=== PATIENT | female | born 1980 | race Caucasian/White ===

== ENCOUNTER 2016-06-28 12:04 | Inpatient (IN) ==
[2016-06-28] MEDS ORDERED: NS 1,000 ML IV ONE ×2 (13:15→18:47)
[2016-06-28] MEDS ORDERED: ZOFRAN IV ONE ×2 (13:15→16:48)
[2016-06-28 13:35] LABS: BASO% 0.1 % (0.0-0.8); EOS# 0.01 X1000 (0.0-0.7); EOS% 0.1 % (0.0-10.0); HEMATOCRIT 30.7 % (37.0-47.0); HEMOGLOBIN 9.4 g/dL (12.0-16.0); IMM GRAN# 0.03 X1000 (0.0-0.04); IMM GRAN% 0.2 % (0.0-0.5); LYMPH# 1.08 X1000 (1.2-3.4); LYMPH% 7.3 % (20.5-51.1); MANUAL DIFF NEEDED? NO; MCH 23.3 PG (27-31); MCHC 30.6 g/dL (33-37); MONO# 0.92 X1000 (0.11-0.59); MONO% 6.2 % (1.7-9.3); MPV 8.9 FL (7.4-10.4); NEUT% 86.1 % (42.2-75.2); PLT 389 X1000 (130-400); RBC 4.04 XMIL (4.2-5.4)
[2016-06-28] MEDS ORDERED: G.I. COCKTAIL PO ONE ×2 (13:39→18:01)
[2016-06-28] MEDS ORDERED: PROTONIX IV ONE (13:40)
[2016-06-28] MEDS ORDERED: SODIUM CHLORIDE 0.9% INJ ONE ×2 (13:40→18:50)
--- NOTE | 2016-06-28 13:45 | PROVIDER DOCUMENTATION ---
HPI-General Adult - General Chief Complaint: N/V/D Stated Complaint: CONGESTION/CHEST PAIN Time Seen by Provider: 06/28/16 12:42 Source: patient Allergies/Adverse Reactions: Patient Allergies Allergy/AdvReac Type Severity Reaction Status Date / Time levofloxacin [From Levaquin] AdvReac Severe Unknown Verified 06/08/16 17:29 Home Medications: Home Medication List Medication Instructions Recorded Confirmed Last Taken Type Pantoprazole [Protonix] 40 mg PO DAILY 04/14/12 06/15/16 06/07/16 18:00 History Alprazolam [Xanax] 1 mg PO PRN PRN 03/27/13 06/15/16 11/11/14 History Aspirin 81 mg PO DAILY 03/27/13 06/15/16 06/07/16 18:00 History Vilazodone [Viibryd] 40 mg PO DAILY 03/27/13 06/15/16 06/07/16 18:00 History Buprenorphine HCl/Naloxone HCl 1 each TOP TID 11/12/14 06/15/16 06/07/16 12:00 History [Suboxone 8 mg/2 mg Sl Film] Amlodipine Besylate [Amlodipine 1 tab PO DAILY 06/08/16 06/15/16 06/07/16 18:00 History Besylate] Dicyclomine [Bentyl] 10 mg PO AC + HS #40 capsule 06/08/16 06/15/16 Unknown Rx Dicyclomine [Bentyl] 20 mg PO BID #20 capsule 06/15/16 Unknown Rx Nitrofurantoin Monohyd/M-Cryst 100 mg PO BID #20 capsule 06/15/16 06/15/16 Unknown Rx [Macrobid 100 mg Capsule] Polyethylene Glycol 3350 [Miralax] 17 gm PO DAILY PRN PRN #7 powd.pack 06/15/16 Unknown Rx - History of Present Illness -Gen Adult Nature of Presenting Problems: Pt. is 35 yof that presents with c/o abd pain that is diffuse but hurts most around her epigastric area. Pt. states she has been trying IVF and that while she had surgery for placement of eggs the physician told her she had diarrhea the whole time. She has an appointment with a GI physician but is hurting with N/V/D. Pt. reports she has been running a fever and unable to eat. Pt. reports she still has her gallbladder. Location of Pain/Injury: reports: abdomen. denies: head, face, mouth, neck, chest, upper extremity, hand(s), back, pelvis, genitalia, lower extremity, feet , upper body, lower body, generalized Pain Radiation: reports: epigastric Quality of Pain: reports: burning. denies: aching, cramping, dull, fullness, indigestion, pressure, sharp, stabbing, tearing, throbbing, tightness Severity: reports: severe. denies: mild, moderate Onset/Duration: reports: gradual, other (One month) Timing: reports: still present. denies: improving, gone now, resolved prior to arrival, intermittent, constant, changing over time, getting worse Context/Activities at Onset: reports: none. denies: recent emotional stress, recent physical stress, recent trauma history, possible bad food, cold exposure , out of country travel Modifying Factors: improves with: nothing Associated Symptoms: reports: diaphoresis, diarrhea, fever/chills, nausea, vomiting. denies: anxiety, arm pain, back/neck pain, chest pain, constipation, cough, dizziness, EENT symptoms, fatigue, genitourinary problems, headaches, heartburn, joint pain, loss of appetite, malaise, muscle aches, sinus congestion /drainage, rash, seizure, shortness of breath, sensory/motor loss, pain with inspiration, swelling/mass in abdomen, syncope, weakness, trouble walking Similar Symptoms Previously?: Yes Recently seen or treated by another doctor?: Yes Review of Systems - Adult - REVIEW OF SYSTEMS - ADULT Constitutional: reports: see HPI, chills, fever. denies: fatique Eyes: reports: see HPI. denies: discharge, blurred vision, double vision Ears, Nose, Mouth & Throat: reports: see HPI. denies: ear pain, sinus problem, mouth/dental pain, throat swelling Cardiovascular: reports: see HPI. denies: chest pain, irregular heart rate, palpitations, syncope Respiratory: reports: see HPI. denies: cough, dyspnea on exertion, pleurisy, wheezing Gastrointestinal: reports: see HPI, abdominal pain, diarrhea, nausea, vomiting Genitourinary: reports: see HPI. denies: dysuria, hematuria, incontinence, urgency Musculoskeletal: reports: see HPI. denies: back pain, joint pain, muscle aches , neck pain Integumentary: reports: see HPI. denies: hives, itching, rash, skin thickening Neurological: reports: see HPI. denies: dizziness/vertigo, headache/migraines, numbness, seizure, tremors Psychiatric: reports: see HPI. denies: anxiety, depression, emotional problems , insomnia, panic attacks, suicidal thoughts Past History - Adult - PAST MEDICAL HISTORY-ADULT Review of Records: reports: Old Records Reviewed, Nursing Assessment Review, Medications Reviewed, Social history reviewed & non-contributory. Major Childhood Illnesses: reports: denies history Cardiovascular: reports: cardiac disease, HTN Respiratory: reports: denies history Gastrointestinal: reports: GERD Obstetrical/Gynecological: reports: ectopic (X2) Genitourinary: reports: denies history Musculoskeletal: reports: denies history Neurological: reports: denies history Psychiatric: reports: denies history Endocrine/Immune: reports: denies history Other Conditions: reports: denies history - PRIOR SURGERIES/PROCEDURES Surgical/Procedure History: reports: other (ectopic ) - PRIOR HOSPITALIZATIONS Prior Hospitalizations: reports: for other non-related - IMMUNIZATION STATUS Childhood Immunizations: See Nurse Assessment Flu Vaccine: See Nurse Assessment - FAMILY HISTORY Family History: reviewed, not pertinent - SOCIAL HISTORY Smoking: cigarettes, greater than 1 pack/day Provider spent 3-5 mins advising pt. on dangers of tobacco.: Discussed the need to stop smoking. Physical Exam-General - PHYSICAL EXAM-ADULT Initial Vital Signs Reviewed: Yes - CONSTITUTIONAL General Appearance: alert, moderate distress. negative: anxious, lethargic, slow to respond, obtunded, combative - EYES Eyes: PERRL/EOMI, pink conjunctivae. negative: conjuctival exudate, scleral icterus, subconjunctival hemorrhage - HEAD, EARS, NOSE, MOUTH & THROAT HENMT: normocephalic/atraumatic, moist mucous membranes. negative: angioedema, frontal tenderness, maxillary tenderness - NECK Neck: non-tender, full range of motion, supple, normal inspection. negative: lymphadenopathy, trachial deviation, thyromegaly - RESPIRATORY Respiratory: lungs clear, normal breath sounds. negative: crackles, rales, rhonchi, stridor, wheezing - CARDIOVASCULAR Cardiovascular: normal peripheral pulses, regular rate, rhythm, no edema, no JVD , no murmur. negative: extra beats, friction rub, irregularly irregular - GASTROINTESTINAL (ABDOMEN) Abdominal Exam: soft, abnormal bowel sounds (Hypoactive), tenderness (Diffusely) . negative: distended, guarding, rigid, rebound, hernia, mass - LYMPHATIC Lymphatic: no adenopathy. negative: axilla node tender, cervical node tenderness - MUSCULOSKELETAL Back Exam: normal inspection, no CVA tenderness, no vertebral tenderness. negative: ecchymosis, swelling, vertebral tenderness Extremity: normal range of motion, non-tender, normal gait, normal inspection. negative: deformity, erythema, inflammation, swelling, tenderness Peripheral Pulses: radial (R): 2+, radial (L): 2+ - SKIN Integumentary: diaphoresis, pallor. negative: cyanosis, ecchymosis, erythema, jaundice, mottled, petechiae, purpura, rash, swelling, tenderness - NEUROLOGIC Neurologic: grossly normal, no motor/sensory deficits. negative: aphasia, facial droop, focal weakness, motor weakness, sensory deficit - PSYCHIATRIC Psych/Mental Status: normal mood/affect, normal thought content, normal thought process, oriented x 3. negative: anxious, paranoid, tearful Progress - PLAN OF CARE/RESULTS Progress/Plan/Lab Results: Vital Signs - 8 hr 06/28/16 12:11 06/28/16 12:45 Temperature 97.5 F L Pulse Rate 97 H Pulse Rate [Sitting] 89 Pulse Rate [Standing] 91 H Pulse Rate [Supine] 79 Respiratory Rate 20 Blood Pressure 141/100 Blood Pressure [Sitting] 148/104 Blood Pressure [Standing] 118/96 Blood Pressure [Supine] 141/96 O2 Sat by Pulse Oximetry 96 Laboratory Results - last 24 hr 06/28/16 13:25 WBC 14.75 H RBC 4.04 L Hgb 9.4 L Hct 30.7 L MCV 76.0 L MCH 23.3 L MCHC 30.6 L RDW Std Deviation 21.7 H Plt Count 389 MPV 8.9 Immature Gran % (Auto) 0.2 Neut % (Auto) 86.1 H Lymph % (Auto) 7.3 L [place] % (Auto) 6.2 Eos % (Auto) 0.1 Baso % (Auto) 0.1 Immature Gran # (Auto) 0.03 Neut # (Auto) 12.69 H Lymph # (Auto) 1.08 L [place] # (Auto) 0.92 H Eos # (Auto) 0.01 Baso # (Auto) 0.02 Orders Category Date Time Status ED: Urine Bedside ORDERED Care 06/28/16 13:15 Active Saline Loc NOW Care 06/28/16 13:15 Active AMYLASE [CHEM] Stat Lab 06/28/16 13:25 Received CBC WITH ELECTRONIC DIFF [HEME] Stat Lab 06/28/16 13:25 Completed CK PROFILE [SP CHEM] Stat Lab 06/28/16 13:25 Received COMPREHENSIVE METABOLIC PANEL [CHEM] Stat Lab 06/28/16 13:25 Received LIPASE [CHEM] Stat Lab 06/28/16 13:[address] W/POSS RFLX CULT [URINALYSIS] Stat Lab 06/28/16 13:15 Uncollected 0.9% Sodium Chloride Inj [Ns] 1,000 ml Med 06/28/16 13:15 Active IV 999 mls/hr Lido/Meraz Alk/Al&mg Hydrox [G.i. Cocktail] Med 06/28/16 13:39 Once 30 ml PO NOW ONE Ondansetron [Zofran] Med 06/28/16 13:15 Discontinued 4 mg IV NOW ONE Pantoprazole [Protonix] Med 06/28/16 13:40 Once 40 mg IV NOW ONE Sodium Chloride 0.9% Med 06/28/16 13:40 Once 10 ml INJ NOW ONE Result Diagrams: 06/28/16 13:25 06/28/16 13:25 - CT/MRI 1 CT Study: Abdomen (Development of prominent overies with multiple cysts up to 3.5 cm since 06-14-16 as well as minimal free fluid. Otherwise no change ([place]) ), Pelvis CT Results: See note - CONSULTS/PCP/HOSPITALIST Notification #1 *Consult/PCP/Hospitalist*: Dr. Aldridge Time Discussed: 15:22 Reason/Comments: Consult Consult Disposition: other (Dr. Aldridge states that the invitro procedure starts with an injection of hcg to help the ovaries release the eggs. This is the cause of the + tests.) #2 Consult: Dr. Howard Saini Discussed: 18:45 Reason/Comments: Admission Consult Disposition: Admit Departure - Departure Time of Disposition Decision: 18:45 DIAGNOSIS: Intractable abdominal pain UTI (urinary tract infection) Qualifiers: Urinary tract infection type: acute cystitis Hematuria presence: without hematuria Qualified Code(s): N30.00 - Acute cystitis without hematuria Diarrhea Qualifiers: Diarrhea type: unspecified type Qualified Code(s): R19.7 - Diarrhea, unspecified Nausea and vomiting Qualifiers: Vomiting type: unspecified Vomiting Intractability: unspecified Qualified Code( s): R11.2 - Nausea with vomiting, unspecified Disposition: HOME 01 Certified Medical Emergency: Emergent Condition: Stable Referrals and Follow-Ups: Jerome Lawrence MD [Primary Care Provider] - - Critical Care Note This patient required my direct personal management.: No Attestation - Physician/ ENMANUEL Attestation Patient care was provided by Advanced Practice Provider:: Yes Advanced Practice Provider:: Isac Streeter Advanced Practice Provider documentation review:: The Mid-level provider documentation, treatment plan and medical decision making was reviewed by the physician who agrees with all treatment and medical decision making by the MLP.
[2016-06-28 13:47] LABS: AGAP 14; ALBUMIN 3.6 g/dL (3.5-5.0); ALKALINE PHOSPHATASE 49 U/L (32-104); AMYLASE 39 U/L (20-200); BUN 7 mg/dL (8-22); CALCIUM 8.8 mg/dL (8.8-10.2); CHLORIDE 98 mmol/L (98-107); CK PROFILE 35 U/L (24-173); COSMO 272; GOT 9 U/L (10-30); GPT < 5 U/L (10-36); LIPASE 40 U/L (13-60); POTASSIUM 3.3 mmol/L (3.5-5.1); SODIUM 136 mmol/L (136-145); TCO2 24 mmol/L (25-35); TOTAL PROTEIN 7.4 g/dL (6.3-8.3)
[2016-06-28 14:24] LABS: BILIRUBIN URINE NEGATIVE (NEGATIVE); BLOOD URINE NEGATIVE (NEGATIVE); CLARITY CLEAR (CLEAR); COLOR YELLOW; GLUCOSE URINE NEGATIVE (NEGATIVE); LEUKOCYTES URINE 1+ (NEGATIVE); NITRITE URINE NEGATIVE (NEGATIVE); PROTEIN URINE NEGATIVE (NEGATIVE); UROBILINOGEN URINE NORMAL
[2016-06-28 14:41] LABS: URINE CAST NONE SEEN /LPF; URINE CRYSTAL NONE SEEN /HPF; URINE CULTURE PL NEEDED? YES; URINE EPITHELIAL CELLS <10 /HPF (<10); URINE SOURCE CLEAN CATCH
[2016-06-28] MEDS ORDERED: ROCEPHIN 1 GM/NS 1 GM/50 ML IVPB IV ONE (15:55)
[2016-06-28] MEDS ORDERED: DILAUDID IV ONE (16:48)
[2016-06-28] MEDS ORDERED: ZOFRAN IV PRN (18:47)
[2016-06-28] MEDS ORDERED: PHENERGAN IV ONE (18:50)
--- NOTE | 2016-06-28 18:51 | Diag Imaging Result Document ---
PROCEDURE NAME: CT ABD/PELVIS W/ IV CONT ONLY - 06/28/2016 STUDY: CT abdomen and pelvis with intravenous contrast. COMPARISON: Compared to a study performed 2 weeks earlier. There is trace fluid about the upper liver and about the spleen on the current exam. Mild fatty infiltration of the liver. The spleen is not enlarged. Normal pancreas, gallbladder, adrenal glands, and kidneys. No hydronephrosis. Normal aorta. Possible filling defect in the anterior left lateral ventricle of the heart has an appearance similar to the prior exam. There is fluid scattered throughout several small bowel loops. The bowel loops are not distended. No inflammation about the cecum. Interval development of many prominent ovarian cysts. The ovaries were normal size on the prior exam but are now enlarged, containing multiple cysts measuring up to 3.5 cm. Normal uterus. There is free fluid in the pelvis. The urinary bladder is moderately distended and appears normal. IMPRESSION: 1. The ovaries are now enlarged, containing multiple prominent cysts, and there is free fluid in the abdomen and pelvis on the current study. 2. No other interval change since the prior exam. A preliminary report was given at 6:01 p.m. [facility]
[2016-06-28] MEDS: PROTONIX 80 MG in NS 80 ML IV SCH (22:59)
[2016-06-29] MEDS: PROTONIX 80 MG in NS 80 ML IV SCH ×2 (09:59→18:09)
[2016-06-29 10:20] LABS: HEMATOCRIT 28.3 % (37.0-47.0); HEMOGLOBIN 8.7 g/dL (12.0-16.0); MCH 23.3 PG (27-31); MCHC 30.7 g/dL (33-37); MCV 75.9 FL (81-99); MPV 9.2 FL (7.4-10.4); RBC 3.73 XMIL (4.2-5.4)
[2016-06-29 10:42] LABS: AGAP 10; ALKALINE PHOSPHATASE 43 U/L (32-104); BUN 6 mg/dL (8-22); CALCIUM 8.2 mg/dL (8.8-10.2); CHLORIDE 99 mmol/L (98-107); COSMO 263; GOT 6 U/L (10-30); GPT < 5 U/L (10-36); POTASSIUM 3.2 mmol/L (3.5-5.1); SODIUM 133 mmol/L (136-145); TCO2 24 mmol/L (25-35); TOTAL PROTEIN 6.4 g/dL (6.3-8.3)
[2016-06-29] MEDS ORDERED: XANAX PO PRN (10:47)
[2016-06-29] MEDS ORDERED: ZOFRAN IV PRN (10:48)
[2016-06-29] MEDS ORDERED: TYLENOL PO PRN (10:48)
[2016-06-29] MEDS ORDERED: ROCEPHIN 1 GM/NS 1 GM/50 ML IVPB IV SCH ×2 (11:00→16:00)
[2016-06-29] MEDS: COREG PO SCH (11:09)
[2016-06-29] MEDS: SUBOXONE 8 MG/2 MG SL SCH ×2 (11:10→20:53)
[2016-06-29] MEDS: G.I. COCKTAIL PO PRN ×3 (11:15→20:54)
--- NOTE | 2016-06-29 15:59 | HISTORY AND PHYSICAL ---
CHIEF COMPLAINT: Nausea and vomiting. HISTORY OF PRESENT ILLNESS: The patient is a 35-year-old female who recently has undergone in vitro fertilization and has had ovaries harvested. She was given beta hCG to prepare for this. During the test she started having some diarrhea and since then she has had nausea, vomiting, and diarrhea. Notes that she has been having a low-grade fever. She has been unable to eat. MEDICATIONS: Protonix, Xanax p.r.n., aspirin, Viibryd 40, Suboxone 8/2 b.i.d., Norvasc twice a day, Bentyl, nitrofurantoin. REVIEW OF SYSTEMS: Patient has had nausea, vomiting, abdominal pain for the past couple of days. Notes that her symptoms dramatically worsened today. Started having increased abdominal pain, increased nausea and vomiting, unable to keep down anything orally. Therefore, she came to the emergency department. Denies any blood in her stool or blood in her emesis. Denies any sick contacts. Denies any headaches, blurred vision, change in vision. PAST MEDICAL HISTORY: 1. Chronic anxiety. 2. Chronic opiate abuse. 3. History of ectopic x2. 4. Chronic reflux. 5. She has had a heart attack. 6. Coronary artery disease. 7. Hypertension. FAMILY HISTORY: Noncontributory. SOCIAL HISTORY: She lives at home. She is . She has been trying to stop smoking. She does not drink. PHYSICAL EXAMINATION: VITAL SIGNS: Reviewed. Temperature 97.5 degrees, pulse 97, respiratory rate 18, BP 141/40. GENERAL: Patient is a well-developed, well-nourished female who is currently in no respiratory distress. She does appear nauseated. HEENT: Normocephalic, atraumatic. NECK: Supple. CV: Regular rate and rhythm. CHEST: Relatively clear. ABDOMEN: Soft. EXTREMITIES: Moves all extremities. NEUROLOGIC: No focal changes. SKIN: Warm and dry. No rashes. DIAGNOSTIC DATA: WBCs 14, hemoglobin and hematocrit are 9 and 30 with an MCV of 76. Sodium 136, potassium 3.3. ASSESSMENT: 1. Nausea and vomiting. 2. Intractable abdominal pain. 3. Mild hypokalemia secondary to the diarrhea and vomiting. 4. Leukocytosis, uncertain etiology; likely stress reaction. 5. Hypertension. 6. Chronic opiate abuse. PLAN: We will admit the patient to the hospital. IV fluids. IV Zofran. Will continue to follow. CT in the ER was essentially unremarkable. cc: Jerome Lawrence MD
[2016-06-30] MEDS: G.I. COCKTAIL PO PRN ×4 (02:03→18:37)
[2016-06-30] MEDS: PROTONIX 80 MG in NS 80 ML IV SCH (04:52)
[2016-06-30] MEDS: COREG PO SCH ×2 (08:31→21:02)
[2016-06-30] MEDS: SUBOXONE 8 MG/2 MG SL SCH ×2 (08:31→21:02)
[2016-06-30] MEDS ORDERED: ROCEPHIN 1 GM/NS 1 GM/50 ML IVPB IV ONE (11:00)
[2016-06-30] MEDS ORDERED: AUGMENTIN PO SCH (21:00)
[2016-07-01] MEDS: G.I. COCKTAIL PO PRN ×4 (01:07→20:24)
[2016-07-01 06:44] LABS: HEMATOCRIT 27.4 % (37.0-47.0); HEMOGLOBIN 8.4 g/dL (12.0-16.0); MCH 23.2 PG (27-31); MCHC 30.7 g/dL (33-37); MCV 75.7 FL (81-99); MPV 9.8 FL (7.4-10.4); RBC 3.62 XMIL (4.2-5.4)
[2016-07-01 06:57] LABS: CHLORIDE 98 mmol/L (98-107); POTASSIUM 3.3 mmol/L (3.5-5.1); SODIUM 133 mmol/L (136-145)
[2016-07-01] MEDS ORDERED: PRILOSEC PO SCH (07:00)
[2016-07-01] MEDS: COREG PO SCH ×2 (09:28→20:05)
[2016-07-01] MEDS: SUBOXONE 8 MG/2 MG SL SCH ×2 (09:28→20:05)
[2016-07-01 09:30] LABS: TCO2 21 mmol/L (25-35)
[2016-07-01 09:31] LABS: BUN 8 mg/dL (8-22); TOTAL PROTEIN 5.7 g/dL (6.3-8.3)
[2016-07-01 09:32] LABS: AGAP 16; COSMO 266; GOT 11 U/L (10-30); GPT 3 U/L (10-36); MAGNESIUM 2.1 mg/dL (1.5-2.7)
[2016-07-01 10:46] LABS: ALBUMIN 3.7 g/dL (3.5-5.0); ALKALINE PHOSPHATASE 54 U/L (32-104)
--- NOTE | 2016-07-01 11:44 | Diag Imaging Result Document ---
PROCEDURE NAME: US ABDOMEN-COMPLETE - 07/01/2016 ABDOMINAL ULTRASOUND PERFORMED PORTABLY: FINDINGS: The abdominal aorta and IVC are obscured by bowel gas. The pancreas is suboptimally visualized, as well. The liver and spleen appear normal in size and echotexture. The gallbladder is free of stones and sludge and has a normal caliber wall. The portal vein is patent. The common bile duct measures 7 mm. This is slightly prominent and is of uncertain significance. The kidneys appear normal bilaterally. No hydronephrosis. IMPRESSION: Borderline prominent common bile duct measuring 7 mm. No cholelithiasis.
--- NOTE | 2016-07-01 15:47 | PROGRESS NOTE ---
DATE: 07/01/2016 SUBJECTIVE: The patient is feeling some better. She states that her nausea and vomiting are better. Abdominal pain has been relieved by GI cocktail. She has been tolerating sips with ice chips. She denies any diarrhea, constipation, any black or bloody vomitus or stool. OBJECTIVE: Vital Signs: Blood pressure is 110/62 with a heart rate of 85, respirations are 18, temperature is 99 degrees oral with room air saturations of 97% and 98%. Cardiovascular: Regular rate and rhythm. S1 and S2 appreciated. Pulmonary: Breath sounds are clear with no increased work of breathing noted. Gastrointestinal: Abdomen is soft, nondistended, nontender with bowel sounds in all 4 quadrants. Extremities: No clubbing or cyanosis. She does have some lower extremity edema, nonpitting bilateral. Neurologic: She is alert and oriented x3 with cranial nerves 2-12 grossly intact. LABORATORY: WBC is 10.9, with hemoglobin 8.4, hematocrit 27.4, and platelets of 303,000. Sodium is 133, potassium 3.3, BUN 8, creatinine 0.3, with a glucose of 80. ASSESSMENT: 1. Nausea and vomiting. 2. Intractable abdominal pain. 3. Mild hypokalemia secondary to diarrhea and vomiting. 4. Leukocytosis, uncertain etiology, likely stress reaction. 5. Hypertension. 6. Chronic opiate abuse. We will continue with the current regimen. She will remain nothing per oral with just sips and chips. Ultrasound of the abdomen will be ordered as the patient has had continued abdominal pain and vomiting with hemoglobin 8.4-9.4, hematocrit 27.4-30. She will be transferred to [facility] when a bed is available. Gastroenterology will be consulted. She will likely need an esophagogastroduodenoscopy. 7. The patient has a positive urine test as well as qualitative blood test with a semiquantitative of 16.2. The patient has recently received a beta HCG injection as she is undergoing in-vitro fertilization and has had eggs harvested. Physician overseeing in-vitro fertilization is Dr. Vogt with a contact #[phone]. His nurse, Nery, is also at this number. Dictated by SAMRA Marcelino for Jerome Lawrence MD cc: SAMRA Marcelino MD
[2016-07-01] MEDS: SODIUM CHLORIDE 0.9% INJ SCH (17:52)
[2016-07-01] MEDS: PROTONIX IV SCH (17:52)
[2016-07-01] MEDS ORDERED: PROTONIX IV SCH (18:51)
[2016-07-02] MEDS: PROTONIX IV SCH ×2 (02:57→17:10)
[2016-07-02] MEDS: G.I. COCKTAIL PO PRN ×5 (02:57→22:27)
[2016-07-02] MEDS: D5 NS 1,000 ML IV SCH ×2 (06:36→11:05)
[2016-07-02 08:44] LABS: MANUAL DIFF NEEDED? NO
[2016-07-02 08:47] LABS: BASO% 0.1 % (0.0-0.8); EOS# 0.05 X1000 (0.0-0.7); EOS% 0.6 % (0.0-10.0); HEMATOCRIT 26.4 % (37.0-47.0); HEMOGLOBIN 8.2 g/dL (12.0-16.0); IMM GRAN# 0.02 X1000 (0.0-0.04); IMM GRAN% 0.2 % (0.0-0.5); LYMPH# 1.23 X1000 (1.2-3.4); LYMPH% 14.5 % (20.5-51.1); MCH 23.8 PG (27-31); MCHC 31.1 g/dL (33-37); MCV 76.5 FL (81-99); MONO# 0.64 X1000 (0.11-0.59); MONO% 7.5 % (1.7-9.3); MPV 9.1 FL (7.4-10.4); NEUT% 77.1 % (42.2-75.2); PLT 272 X1000 (130-400); RBC 3.45 XMIL (4.2-5.4)
[2016-07-02 09:06] LABS: AGAP 15; BUN 6 mg/dL (8-22); CHLORIDE 94 mmol/L (98-107); COSMO 265; SODIUM 134 mmol/L (136-145); TCO2 25 mmol/L (25-35)
[2016-07-02] MEDS: SUBOXONE 8 MG/2 MG SL SCH ×2 (09:33→22:31)
[2016-07-02] MEDS ORDERED: DIPRIVAN 1% ONE (13:16)
[2016-07-02] MEDS ORDERED: EXTENSION SET 32 IN 4522 ONE (13:31)
[2016-07-02] MEDS ORDERED: ANESTHESIA PB SET 88 IN 5742 ONE (13:31)
[2016-07-02] MEDS ORDERED: LR 1,000 ML ONE (13:31)
[2016-07-02] MEDS: COREG PO SCH ×2 (13:38→22:28)
[2016-07-02] MEDS ORDERED: MORPHINE IV PRN (13:51)
[2016-07-02] MEDS ORDERED: GOLYTELY PO ONE (14:00)
[2016-07-02] MEDS: SODIUM CHLORIDE 0.9% INJ SCH (17:10)
[2016-07-02] MEDS: CARAFATE LIQUID PO SCH ×2 (17:10→22:31)
--- NOTE | 2016-07-02 20:00 | OPERATIVE NOTE ---
PROCEDURE DATE: 07/02/2016 REFERRING PHYSICIAN: Dr. Lawrence. GASTROENTEROLOGY INPATIENT PROCEDURE: PROCEDURE: Esophagogastroduodenoscopy with biopsy. PREOPERATIVE DIAGNOSES: 1. Epigastric pain going on for the last 1 month. 2. Reflux. 3. Anemia with a hemoglobin of 8.4 g. 4. Positive serum HCG level secondary to in vitro fertilization, associated beta HCG shot given by Dr. Vogt at [place]. 5. Negative imaging on CT and ultrasound. 6. History of chronic pain, on Suboxone, and has intermittent constipation which has worsened over the last 1 month. POSTOPERATIVE DIAGNOSES: 1. Normal esophagus in its entire length. 2. Z-line was at 35 cm. 3. Hiatal hernia 1 cm in size. 4. Bile in the stomach which was suctioned out. 5. Gastritis in the body and antrum, erosive type, moderately severe, status post biopsy. 6. Normal fundus, cardia, and incisura. 7. Normal duodenal bulb and second portion. 8. No evidence of pyloric stenosis. COMPLICATIONS: None. ANESTHESIA: Monitored anesthesia. ESTIMATED BLOOD LOSS: None. SPECIMEN: Random gastric biopsies sent to Surgical Pathology. DESCRIPTION OF PROCEDURE: After informed consent from the patient, explaining the risks, benefits, indications, and alternatives, the patient was prepared for EGD. The risks of the procedure, including infection, bleeding, pain, trauma to the surrounding structures, perforation, , among others, and she acknowledged understanding and agreed to proceed with the procedure. The patient was brought to the OR. She was turned in the left lateral position. A bite block was placed in patient's mouth. After adequate monitored anesthesia care the scope was gently introduced through the oral vestibule all the way to the second portion of the duodenum. Esophagus was normal the entire length. Z-line was at 35 cm. There was evidence of a sliding hiatal hernia of 1 cm. The scope was then withdrawn in the stomach. Evidence of bile which was suctioned out. There was evidence of erythema and erosion in the body and antrum, more so in the distal antrum and the pylorus. This was biopsied. Normal fundus, cardia, incisura on retroflexion. There was no evidence of any active ulceration noted in the entire stomach. The scope was advanced to the duodenum which showed normal mucosa in duodenal bulb and second portion of duodenum. The scope was withdrawn. The air was aspirated as the scope was withdrawn. The patient tolerated the procedure well and left the OR in stable condition. I discussed the finding with the patient when the patient awakened and all questions answered. RECOMMENDATIONS: 1. The patient will be on Protonix twice a day for 1 week and then switch to once daily for the next 3 months. 2. Patient on Carafate 1 g 6 hours for 4-6. 3. The patient will be on gastroesophageal reflux lifestyle changes. Avoid excessive tea, coffee, soda, tomatoes, onions, spicy foods. 4. Patient has chronic constipation and intermittent diarrhea. I believe she could have chronic constipation and overflow diarrhea. We will give her GoLYTELY and give her soapsuds enema. We will schedule her for colonoscopy tomorrow for work up of worsening anemia. The above plan of care discussed with the patient's mother, and all questions answered. cc: MD Jerome Gutierrez MD MTDD
[2016-07-03] MEDS: G.I. COCKTAIL PO PRN ×5 (02:19→22:18)
[2016-07-03] MEDS: SODIUM CHLORIDE 0.9% INJ SCH ×2 (02:19→14:22)
[2016-07-03] MEDS: PROTONIX IV SCH ×2 (02:19→14:22)
[2016-07-03] MEDS: CARAFATE LIQUID PO SCH ×4 (03:37→22:19)
[2016-07-03] MEDS: D5 NS 1,000 ML IV SCH ×4 (06:24→22:28)
[2016-07-03] MEDS ORDERED: MYLICON DROPS (DOSE) ONE (07:31)
[2016-07-03 08:03] LABS: MANUAL DIFF NEEDED? NO
[2016-07-03 08:05] LABS: BASO% 0.2 % (0.0-0.8); EOS# 0.05 X1000 (0.0-0.7); EOS% 0.8 % (0.0-10.0); HEMATOCRIT 26.6 % (37.0-47.0); HEMOGLOBIN 8.1 g/dL (12.0-16.0); IMM GRAN# 0.02 X1000 (0.0-0.04); IMM GRAN% 0.3 % (0.0-0.5); LYMPH# 0.99 X1000 (1.2-3.4); LYMPH% 15.8 % (20.5-51.1); MCH 23.4 PG (27-31); MCHC 30.5 g/dL (33-37); MCV 76.9 FL (81-99); MONO# 0.46 X1000 (0.11-0.59); MONO% 7.3 % (1.7-9.3); MPV 9.2 FL (7.4-10.4); NEUT% 75.6 % (42.2-75.2); PLT 270 X1000 (130-400); RBC 3.46 XMIL (4.2-5.4)
[2016-07-03 08:25] LABS: AGAP 12; BUN 3 mg/dL (8-22); CALCIUM 8.1 mg/dL (8.8-10.2); CHLORIDE 99 mmol/L (98-107); COSMO 273; POTASSIUM 2.9 mmol/L (3.5-5.1); SODIUM 139 mmol/L (136-145); TCO2 28 mmol/L (25-35)
[2016-07-03] MEDS ORDERED: DIPRIVAN 1% 500 MG/50 ML BOTTLE ONE (08:58)
[2016-07-03] MEDS ORDERED: XYLOCAINE-MPF 2% ONE (09:14)
[2016-07-03] MEDS: SUBOXONE 8 MG/2 MG SL SCH ×2 (09:29→22:19)
[2016-07-03] MEDS: COREG PO SCH ×2 (09:30→22:19)
--- NOTE | 2016-07-03 10:01 | OPERATIVE NOTE ---
PROCEDURE DATE: 07/03/2016 PROCEDURE PERFORMED: Ileal colonoscopy with snare cautery polypectomy of the descending colon, and cold biopsy polypectomy of the transverse colon polyp. PREOPERATIVE DIAGNOSES: 1. Anemia. 2. Change in bowel habits, constipation with diarrhea. 3. Abdominal pain. 4. Erosive gastritis on the esophagogastroduodenoscopy yesterday. POSTOPERATIVE DIAGNOSIS: 1. Normal terminal ileum. 2. Polyp, which is about 5 to 10 mm, sessile, in transverse colon. This was removed cold biopsy polypectomy. 3. Semi-pedunculated polyp noted in the descending colon, which was removed with snare cautery polypectomy. 4. Internal hemorrhoid. 5. No evidence of any colitis. 6. Stool noted in the cecum and right colon. ESTIMATED BLOOD LOSS: Minimal. COMPLICATIONS: None. ANESTHESIA: Monitored anesthesia care. SPECIMENS: Transverse colon polyp and descending colon polyp, sent to Surgical Pathology. DESCRIPTION OF PROCEDURE: After informed consent, and explaining the risks, benefits, indications, and alternatives, the patient was prepared for colonoscopy. The risks of the procedure, including infection, bleeding, pain, trauma to the surrounding structures, perforation were explained to the patient, among others, and she acknowledged understanding and agreed to proceed with the procedure. She was brought to the OR. She was turned in the left lateral position. Rectal exam was performed, which was normal with no masses felt, no blood on the examining finger. The colonoscope was introduced through the anal verge and advanced all the way to the terminal ileum. Terminal ileum was normal. There was no evidence of any Crohn's disease. There was stool in the cecum and ascending colon, which was lavaged. This was thick liquid in color. The underlying colonic mucosa appeared normal. There was evidence of a polyp, which was 5 to 10 mm, sessile in nature, in the transverse colon, which was removed using cold biopsy polypectomy. There was evidence of stool in scattered areas in the transverse and descending colon, which was lavaged. There was evidence of a semi-pedunculated polyp measuring about 1 cm in the descending colon, which was removed using snare cautery polypectomy. There was evidence of internal hemorrhoid on retroflexion. There was no evidence of any other visible overt colitis noted in the entire colon. The air was withdrawn. The patient tolerated the procedure well and is in stable condition. I discussed the findings with the patient's by phone, and all questions were answered. RECOMMENDATIONS: 1. The patient will be on full liquid diet for the next 2 days, and advance as tolerated. 2. The patient will be on MiraLAX 17 grams p.o. b.i.d. 3. Will start the patient on Iron-C 1 capsule p.o. b.i.d. for 3 months for anemia. 4. Will check the celiac panel. 5. The patient will need to be on Protonix once daily for 3 months for erosive gastritis. We will keep her on Carafate 1 gram ever 6 hours for bile in the stomach. Above plan of care was discussed with the patient's family, and all questions were answered. She will return to clinic in 4 weeks. cc: Kristian Chapin MD MTDD
[2016-07-03] MEDS: MIRALAX PO SCH ×2 (12:22→22:20)
--- NOTE | 2016-07-03 14:28 | PROGRESS NOTE ---
DATE: 07/03/2016 SUBJECTIVE: This patient had today a colonoscopy that did not show any signs of bleed. She had 2 polyps and internal hemorrhoids. The polyps were removed and sent to pathology. No evidence of colitis. Yesterday, this patient had an upper endoscopy done that showed gastritis in the body and antrum, erosive type, moderately severe. Also a biopsy was taken. Today, this patient is still complaining of epigastric pain that improved just with GI cocktail. We cannot use narcotics, because this patient is on Suboxone and we cannot use NSAIDs, because this patient moderately severe gastritis. OBJECTIVE: Vital Signs: Temperature 98.6, pulse 78, respiratory rate 20, blood pressure 109/68, Oxygen saturation 100% on room air. HEENT: Head normocephalic. No trauma. PERRLA. Neck: Supple. No JVD. No masses. Central trachea. Chest: Clear to auscultation. No wheezing. No rales. Cardiovascular: RRR. No murmurs. No gallops. No rubs. Abdomen: Soft, tender to palpation at the level of the epigastric area. Positive bowel sounds. Extremities: No edema. No clubbing. No cyanosis. Neurological: The patient is alert and oriented x3. No focal neurological deficits. LABORATORY: WBC 6.2, hemoglobin 8.1, hematocrit 26.6, platelets 270. Sodium 139, potassium 2.9, chloride 99, bicarbonate 28. BUN 3, creatinine 0.4, glucose 87, calcium 8.1. ASSESSMENT AND PLAN: 1. Intractable abdominal pain, status post upper endoscopy that showed moderately severe erosive gastritis. Gastroenterology department is following this patient. We will continue with pantoprazole and Carafate. Also, I will continue with GI cocktail. 2. Hypokalemia. The potassium has been replaced. 3. Leukocytosis, resolved. 4. Hypertension. Blood pressure is stable. 5. Chronic opiate abuse. Continue with the same management. This patient is on Suboxone. 6. Patient has a positive urine test as well as qualitative blood test with semi- quantitative of 16.2. This patient has recently received a beta HCG injection because she is undergoing in vitro fertilization. She is not at this moment. cc: Sukhi Bates MD
[2016-07-03] MEDS: ICAR-C PO SCH (22:19)
[2016-07-04] MEDS: D5 NS 1,000 ML IV SCH (00:17)
[2016-07-04] MEDS: CARAFATE LIQUID PO SCH ×2 (02:49→07:40)
[2016-07-04] MEDS: PROTONIX IV SCH (02:49)
[2016-07-04] MEDS: G.I. COCKTAIL PO PRN ×3 (02:50→11:19)
[2016-07-04] MEDS: SODIUM CHLORIDE 0.9% INJ SCH (02:50)
[2016-07-04 06:02] VITALS: BP 115/66
[2016-07-04 06:44] LABS: MANUAL DIFF NEEDED? NO
[2016-07-04 06:57] LABS: BASO% 0.4 % (0.0-0.8); EOS# 0.08 X1000 (0.0-0.7); EOS% 1.5 % (0.0-10.0); HEMOGLOBIN 7.9 g/dL (12.0-16.0); LYMPH# 1.19 X1000 (1.2-3.4); LYMPH% 21.8 % (20.5-51.1); MCH 23.4 PG (27-31); MCHC 30.4 g/dL (33-37); MCV 77.2 FL (81-99); MONO# 0.46 X1000 (0.11-0.59); MONO% 8.4 % (1.7-9.3); MPV 9.3 FL (7.4-10.4); NEUT% 67.9 % (42.2-75.2); PLT 273 X1000 (130-400); RBC 3.37 XMIL (4.2-5.4)
[2016-07-04 07:23] LABS: AGAP 11; BUN 1 mg/dL (8-22); CALCIUM 8.3 mg/dL (8.8-10.2); CHLORIDE 102 mmol/L (98-107); COSMO 278; POTASSIUM 3.1 mmol/L (3.5-5.1); SODIUM 142 mmol/L (136-145); TCO2 29 mmol/L (25-35)
[2016-07-04] MEDS ORDERED: KLOR-CON PO ONE (08:00)
[2016-07-04] MEDS: COREG PO SCH (09:14)
[2016-07-04] MEDS: MIRALAX PO SCH (09:14)
[2016-07-04] MEDS: ICAR-C PO SCH (09:14)
[2016-07-04] MEDS: SUBOXONE 8 MG/2 MG SL SCH (09:14)
[2016-07-04] MEDS ORDERED: CARAFATE PO SCH (11:45)
--- NOTE | 2016-07-04 16:58 | DISCHARGE SUMMARY ---
ADMISSION DATE: 06/28/2016 DISCHARGE DATE: 07/04/2016 CONSULTATIONS: Dr. Kristian Chapin with GI. PERTINENT PROCEDURES: 1. Abdomen and pelvis CT showed the ovaries were enlarged containing multiple prominent cysts and there was free fluid in the abdomen and pelvis. No other interval changes since prior exam. 2. Abdominal ultrasound showed borderline prominent common bile duct measuring 7 mm. No cholelithiasis. 3. EGD with biopsy performed by Dr. Chapin. 4. Ileal colonoscopy with snare cautery polypectomy of the descending colon. Cold biopsy polypectomy of transverse colon polyp performed by Dr. Chapin. DISCHARGE DIAGNOSES: 1. Intractable abdominal pain status post upper and lower GI. Endoscopy showed some moderately severe erosive gastritis. No evidence of colitis. The patient will be on Protonix twice a day for 1 week then switched to daily for 3 months as well as Carafate. She will need to follow a GERD/reflux lifestyle changes, avoid excessive tea, coffee, soda, tomatoes, onions, and spicy food. In reference to her chronic constipation and intermittent diarrhea it was felt this is chronic constipation and overflow diarrhea. Patient will continue with MiraLAX b.i.d. as well as started on Icar C b.i.d. for 3 months for anemia and follow up in 3 months with GI. 2. Hypokalemia resolved. 3. Leukocytosis resolved. 4. Hypertension stable. 5. Chronic opiate abuse. The patient will continue on Suboxone. 6. The patient did have a positive urine test as well qualitative blood test semi- quantitative of 16.2. The patient recently had received a beta hCG injection because she is undergoing in vitro fertilization. She is not actually at the moment. HOSPITAL COURSE: Ms. Esquivel is a 35-year-old female, who carries a past medical history of chronic anxiety, chronic opiate abuse, history of 2 ectopic pregnancies, chronic reflux, AR, coronary artery disease and hypertension. She recently underwent in vitro fertilization and has had ovaries harvested. She had been given a beta hCG to prepare for this. During the test she started having some diarrhea and since then, she has had nausea, vomiting and diarrhea as well as a low-grade fever. She had been unable to eat. The patient was admitted for intractable abdominal pain, nausea and vomiting as well as hypokalemia secondary to diarrhea and vomiting. The patient was admitted to the hospital, started on IV fluids as well as antiemetics. CT in the ED was essentially unremarkable. GI was consulted. The patient underwent an EGD and colonoscopy. She was found to have some gastritis. She will continue on Protonix as well as Icar C for her anemia and Carafate and for her chronic constipation felt like it was overflow diarrhea. She will continue on MiraLAX 17 g p.o. b.i.d. Clinically, the patient has improved. She is appropriate for discharge to follow up with GI for results of her testing. Vital signs at time of her discharge, temperature is 97.9 degrees, heart rate 75, respiratory rate has not been recorded. Blood pressure 115/66, O2 is 98% on room air. DISCHARGE DIET: Full liquid diet. Advance as tolerated. DISCHARGE MEDICATIONS: 1. Xanax 0.5 mg p.o. b.i.d. p.r.n. 2. Norvasc 5 mg tab p.o. daily. 3. Augmentin 875 mg p.o. q.12 hours. 4. Suboxone 8 mg 2 mg sublingual film 1 each topical b.i.d. 5. Coreg 6.25 mg p.o. b.i.d. 6. Bentyl 10 mg p.o. before meals and at bedtime. 7. Icar C 1 each p.o. b.i.d. 8. GI cocktail 30 mL t.i.d. p.r.n. 9. Protonix 40 mg p.o. daily. 10. MiraLAX 17 g p.o. b.i.d. 11. Carafate 1 g p.o. 4 times a day. 12. Viibryd 40 mg p.o. daily. DISPOSITION: Patient is being discharged from the hospital to home. DISCHARGE INSTRUCTIONS: She will need to follow up with her primary care physician, Dr. Jerome Lawrence as well as follow up with Dr. Chapin as an outpatient to follow up with med management as well as results of her biopsies. Patient can return to the ED for any worsening of symptoms. DISCHARGE TIME: Thirty minutes. Dictated by SAMRA Oakes for Sukhi Bates MD cc: MD Jerome Phillips MD
[2016-07-04 19:40] LABS: CELIAC DISEASE PROFILE SEE COMMENTS; TISSUE TRANSGLUTAMINASE IGA SEE COMMENTS
== END 2016-07-04 14:43 | disposition home or self-care (01) ==
LOC: P.ED 12:04 → P.MEDSURG 12:04 → OBSVTOIN 19:42 → SUATTDRO 19:42 → 3N 07-01 16:38
PROVIDERS: ATTEND Internal Medicine

== ENCOUNTER 2016-07-08 12:20 | Observation (INO) ==
[2016-07-08] MEDS ORDERED: ZOFRAN IV PRN (13:33)
[2016-07-08] MEDS ORDERED: TYLENOL PO PRN (13:48)
[2016-07-08] MEDS ORDERED: XANAX PO PRN (13:48)
[2016-07-08] MEDS ORDERED: SODIUM CHLORIDE 0.9% INJ SCH (14:00)
[2016-07-08] MEDS: PROTONIX IV SCH (14:05)
[2016-07-08] MEDS: G.I. COCKTAIL PO PRN ×3 (14:20→22:22)
[2016-07-08] MEDS: NS 1,000 ML IV SCH (14:20)
[2016-07-08] MEDS: BENTYL PO SCH ×2 (18:25→20:11)
[2016-07-08] MEDS: CARAFATE PO SCH ×2 (18:25→20:11)
[2016-07-08] MEDS: MIRALAX PO SCH (20:11)
[2016-07-08] MEDS: COREG PO SCH (20:11)
[2016-07-08] MEDS: ZOFRAN IV PRN (22:22)
[2016-07-09] MEDS: BENTYL PO SCH ×5 (01:51→21:57)
[2016-07-09] MEDS: PROTONIX IV SCH ×2 (02:34→16:41)
[2016-07-09] MEDS: ZOFRAN IV PRN ×2 (02:35→06:18)
[2016-07-09] MEDS: G.I. COCKTAIL PO PRN ×3 (02:35→10:05)
[2016-07-09] MEDS: NS 1,000 ML IV SCH ×2 (06:24→21:56)
[2016-07-09 06:57] LABS: HEMATOCRIT 30.4 % (37.0-47.0); HEMOGLOBIN 9.2 g/dL (12.0-16.0); MCHC 30.3 g/dL (33-37); MPV 9.7 FL (7.4-10.4)
[2016-07-09 07:20] LABS: AGAP 17; ALBUMIN 3.3 g/dL (3.5-5.0); ALKALINE PHOSPHATASE 71 U/L (32-104); BUN 8 mg/dL (8-22); CALCIUM 9.1 mg/dL (8.8-10.2); CHLORIDE 96 mmol/L (98-107); COSMO 271; GOT 14 U/L (10-30); GPT 7 U/L (10-36); MAGNESIUM 2.2 mg/dL (1.5-2.7); POTASSIUM 3.6 mmol/L (3.5-5.1); SODIUM 136 mmol/L (136-145); TCO2 24 mmol/L (25-35); TOTAL PROTEIN 7.5 g/dL (6.3-8.3)
[2016-07-09] MEDS ORDERED: VIIBRYD PO SCH (08:00)
[2016-07-09] MEDS ORDERED: SODIUM CHLORIDE 0.9% INJ PRN (08:26)
[2016-07-09] MEDS: PHENERGAN IV PRN ×2 (08:44→12:35)
[2016-07-09] MEDS ORDERED: NORVASC PO SCH (09:00)
--- NOTE | 2016-07-09 09:13 | HISTORY AND PHYSICAL ---
CHIEF COMPLAINT: Nausea and vomiting. HISTORY OF PRESENT ILLNESS: This patient is a 35-year-old female who recently was diagnosed with moderate gastritis, erosive. She started feeling better and went home. After getting home for a couple of days, she notes that she has had decreased oral intake, decreased drinking. She has had increased abdominal pain. REVIEW OF SYSTEMS: As noted above, positive for severe epigastric abdominal pain. She denies any hematemesis, hematochezia, or melena. Denies any hemoptysis. Denies any fevers or chills. Denies any diarrhea. She has chronic constipation. Denies any weight loss, although notes she has not checked her weight. Denies any skin rashes. Denies any dysuria or urinary frequency, although notes that her urine has been dark. She denies any fevers or chills. She has a headache. Denies any blurred vision, change in vision, or focalized weakness. FAMILY HISTORY: Noncontributory. SOCIAL HISTORY: The patient lives at home. She continues to smoke, although she notes that she has not smoked since her last hospital admission on 06/28/2016. She is . She is employed. PAST MEDICAL HISTORY: 1. Recent diagnosis of moderate to severe erosive gastritis. 2. Chronic constipation, likely opiate induced. 3. Hypertension. 4. Chronic opiate abuse and stabilization with Suboxone. 5. Chronic anxiety. 6. History of ectopic x2. 7. Chronic reflux. 8. Known coronary artery disease as she has had a heart attack in the past. 9. Obesity. PHYSICAL EXAMINATION: GENERAL: Patient is well developed, well nourished. She is currently in no respiratory distress but she certainly is ill-appearing secondary to the nausea and abdominal pain. NECK: Supple. HEENT: Normocephalic, atraumatic. CV: Regular rate. CHEST: Clear. ABDOMEN: Soft, obese. Tender in the epigastric region. No guarding. No rebound. EXTREMITIES: Moves all extremities. NEUROLOGIC: No focal changes. SKIN: Warm and dry. No rashes. DIAGNOSTIC DATA: Labs pending. ASSESSMENT: 1. Volume depletion secondary to decreased oral intake. 2. Severe erosive gastritis. 3. Chronic constipation. 4. Hypertension. 5. Known coronary artery disease. 6. Chronic tobacco abuse. 7. Chronic depression. PLAN: We will admit patient to the hospital. IV fluids, Zofran. Unfortunately, her chronic anxiety, depression, and chronic tobacco abuse certainly are playing a role in her current epigastric pain. Discussed this with the patient. We will continue to follow. cc: Jerome Lawrence MD
--- NOTE | 2016-07-09 11:25 | Diag Imaging Result Document ---
PROCEDURE NAME: KUB ABDOMEN - 07/09/2016 SUPINE RADIOGRAPH OF THE ABDOMEN AND PELVIS: COMPARISON: 06/08/2016. FINDINGS: There are nonspecific moderately gas-distended loops of bowel. It is probably mainly colonic distention. However, it is possible that there is also a loop of distended small bowel. Consider ileus versus low-grade bowel obstruction. IMPRESSION: Nonspecific gaseous distention of several bowel loops as described. Please see above discussion.
[2016-07-09] MEDS: CARAFATE PO SCH ×4 (11:40→21:57)
[2016-07-09] MEDS: COREG PO SCH ×2 (11:41→21:56)
[2016-07-09] MEDS: MIRALAX PO SCH ×2 (11:42→21:56)
--- NOTE | 2016-07-09 17:13 | Diag Imaging Result Document ---
PROCEDURE NAME: CHEST-PORTABLE - 07/09/2016 SINGLE FRONTAL RADIOGRAPH OF THE LOWER CHEST AND UPPER ABDOMEN: COMPARISON: 06/08/2016. FINDINGS: There is a recently placed NG tube. The tip projects well below the diaphragm and is assumed to be in the stomach in the expected position. There are nonspecific bowel gas and stool patterns. Limited views of the lung bases are unremarkable. IMPRESSION: Newly placed NG tube identified in the expected position below the diaphragm.
[2016-07-09] MEDS ORDERED: REGLAN IV SCH (20:45)
[2016-07-09] MEDS ORDERED: SUBOXONE 8 MG/2 MG SL SCH (21:45)
[2016-07-09 22:34] VITALS: BP 119/71
--- NOTE | 2016-07-10 08:26 | PROGRESS NOTE ---
DATE: 07/09/2016 SUBJECTIVE: Patient states that she is still having abdominal pain, intense at times, epigastric in area. She does have some mid back pain with it occasionally. Complains of nausea but denies any emesis. States she has not been drinking or eating secondary to the pain. Denies any diarrhea. Denies any hematemesis or melena. OBJECTIVE: Vital Signs: Reviewed and stable. She is afebrile. Blood pressure is stable. Heart rate 95, respiratory rate 20. General: Patient is awake, alert. She is in no respiratory distress but she does appear to be in pain. HEENT: Normocephalic and atraumatic. Neck: Supple. CV: Regular rate. Chest: Clear. Abdomen: Soft. Tender in the epigastric region. Positive bowel sounds. No guarding. No rebound. Labs: Reviewed. ASSESSMENT: 1. Epigastric abdominal pain secondary to erosive gastritis. 2. Erosive gastritis. 3. Nausea. 4. Volume depletion secondary to decreased oral intake. 5. Chronic opiate abuse. 6. Chronic anxiety. PLAN: We will continue the patient in the hospital today. IV fluids. Continue Suboxone for opiate withdrawal. We will continue Zofran. We will add Phenergan. We will check KUB. Further orders as needed. cc: Jerome Lawrence MD
--- NOTE | 2016-07-10 08:28 | PROGRESS NOTE ---
DATE: 07/09/2016 ADDENDUM: KUB demonstrated early small bowel ileus. Patient has continued to have nausea and retching. Therefore, an NG tube was placed and a large amount of gastric content was suctioned out. The patient notes that she feels more comfortable. Will leave the NG to intermittent wall suction overnight and adjust in the morning. cc: Jerome Lawrence MD
--- NOTE | 2016-07-10 08:31 | DISCHARGE SUMMARY ---
ADMISSION DATE: 07/08/2016 DISCHARGE DATE: 07/09/2016 DISCHARGE DIAGNOSES: 1. Patient left against medical advice. 2. Epigastric abdominal pain. 3. Nausea with occasional vomiting. 4. Improved small-bowel ileus. 5. Severe erosive gastritis. 6. Chronic opiate abuse and stabilization with Suboxone. CONSULTATIONS: None. PROCEDURES: NG tube. BRIEF HOSPITAL COURSE: Patient is a 35-year-old female who was admitted as noted on the HPI secondary to refusal to eat or drink at home. She has severe erosive esophagitis which will of course cause significant epigastric abdominal pain. Patient, unfortunately, after leaving [facility], went home and refused to eat or drink if her stomach hurt. Discussed with her that she is going to have abdominal pain off and on for the next several weeks until this heals. We therefore placed her in the hospital with IV fluids. She was continuing to complain of nausea and increased abdominal pain so a KUB was obtained which demonstrated a possible early ileus. Therefore, an NG tube was placed to intermittent wall suction. Unfortunately, sometime early in the evening on 07/09/2016, Ms. Esquivel became very animated, agitated, and irritated. She was reported to be cussing, yelling, and screaming, stating that either the staff pull this blank- blank tube out of her blank nose or she would, and she would leave and go to [place] and have surgery. In an attempt to appease her, the NG tube was removed and she calmed down for a short period of time, and then became animated again and decided to leave against medical advice. DISPOSITION: Unfortunately, no disposition was able to be performed as the patient left against medical advice. However, she has the instructions from her most recent hospitalization at [facility] and certainly should continue these. At this point, patient will also be dismissed from my practice as well. cc: Jerome Lawrence MD
== END 2016-07-09 23:10 | disposition left against medical advice (07) ==
LOC: INTOOBSV 12:20 → P.DIRADM 12:20 → P.MEDSURG 12:26
PROVIDERS: ADMIT Family Medicine; ATTEND Family Medicine